=== PATIENT | male | born 1980 | race Caucasian/White ===

== ENCOUNTER 2025-10-17 23:02 | Emergency (ER) | payer SELFPAY ==
[2025-10-17] MEDS ORDERED: diphenhydrAMINE 50 MG/ML VIAL ONE (23:25)
[2025-10-17] MEDS ORDERED: Metoclopramide HCl 10 MG (2 mL) VIAL ONE (23:25)
== END 2025-10-18 01:38 | disposition home or self-care (01) ==
LOC: ERS 23:02
DX: R51.9 Headache, unspecified (principal)
CPT/HCPCS: 70450; 96365; 96375; J1200; J2765